=== PATIENT | female | born 1990 | race American Indian/Alaskan Native ===

== ENCOUNTER 2019-04-09 07:55 | Emergency (ER) | payer SELFPAY ==
--- NOTE | 2019-04-09 10:38 | Emergency Department Report ---
ED Female HPI - General Chief complaint: Urogenital-Female Stated complaint: BUMP VAGINAL AREA Time Seen by Provider: 04/09/19 09:30 Source: patient Mode of arrival: Ambulatory Limitations: No Limitations - History of Present Illness Initial comments: This is a 28-year-old -[place] female presents to the emergency room with painful bumps to external labia for 2 days. Patient reports it is increasingly uncomfortable with sitting. She reports prior history once before but it went away. Her last menstrual period was 04/01/2019, . She denies vaginal discharge, pelvic pain, back pain, urinary frequency, urinary urgency, or dysuria. MD Complaint: possible STD Onset/Timin -: days(s) Location: suprapubic Radiation: non-radiating Severity: moderate Severity scale (0 -10): 5 Quality: aching Consistency: intermittent Improves with: none Worsens with: movement, other (sitting) Are you Now?: No Last Menstrual Period: 04/01/19 EDC: 01/06/20 Associated Symptoms: denies other symptoms - Related Data Sexually active: Yes : 3 Para: 2 A: 1 () Previous Rx's Medication Instructions Recorded Last Taken Type Valacyclovir HCl [Valtrex] 1,000 mg PO BID #20 tablet 04/09/19 Unknown Rx Allergies Allergy/AdvReac Type Severity Reaction Status Date / Time No Known Allergies Allergy Unverified 04/09/19 08:09 ED Review of Systems ROS: Stated complaint: BUMP VAGINAL AREA Other details as noted in HPI Constitutional: denies: chills, fever Respiratory: denies: cough, shortness of breath, wheezing Cardiovascular: denies: chest pain, palpitations Gastrointestinal: denies: abdominal pain, nausea, diarrhea Genitourinary: denies: urgency, dysuria, discharge Musculoskeletal: denies: back pain, joint swelling, arthralgia Skin: lesions (painful lesion to labia). denies: rash Neurological: denies: headache, weakness, paresthesias Psychiatric: denies: anxiety, depression ED Past Medical Hx - Past Medical History Previous Medical History?: No - Surgical History Past Surgical History?: No - Social History Smoking Status: Current Every Day Smoker Substance Use Type: Alcohol - Medications Home Medications: Home Medications Medication Instructions Recorded Confirmed Last Taken Type Valacyclovir HCl [Valtrex] 1,000 mg PO BID #20 tablet 04/09/19 Unknown Rx ED Physical Exam - General Limitations: No Limitations General appearance: alert, in no apparent distress - Respiratory Respiratory exam: Present: normal lung sounds bilaterally. Absent: respiratory distress - Cardiovascular Cardiovascular Exam: Present: regular rate, normal rhythm. Absent: systolic murmur, diastolic murmur, rubs, gallop - GI/Abdominal GI/Abdominal exam: Present: soft, normal bowel sounds. Absent: distended, tenderness, guarding, rebound, rigid - External exam: Present: lesions (Multiple vesicular lesions to vaginal opening, TTP). Absent: erythema, swelling, lacerations, ecchymosis, bleeding - Neurological Exam Neurological exam: Present: alert, oriented X3, normal gait - Psychiatric Psychiatric exam: Present: normal affect, normal mood - Skin Skin exam: Present: warm, dry, intact, normal color. Absent: rash ED Course Vital Signs 04/09/19 08:00 Temperature 98.4 F Pulse Rate 74 Respiratory 16 Rate Blood Pressure 113/62 O2 Sat by Pulse 100 Oximetry ED Medical Decision Making - Medical Decision Making This is a 28-year-old -[place] female who presents with painful lesions to genital for 2 days. Patient was examined by me. Vitals are stable and in no acute distress. No labs ordered. Multiple vesicular lesions to vaginal opening, TTP. Lesions appear to be genital herpes. Start famciclovir. Referral to PCP or health Department for full STD screen. Discharged home in stable condition. Discussed prevention options. F/U with PCP or Health Department. - Differential Diagnosis genital ulcer Critical care attestation.: If time is entered above; I have spent that time in minutes in the direct care of this critically ill patient, excluding procedure time. ED Disposition Clinical Impression: Pain of female genitalia Genital herpes Qualifiers: Herpes simplex infection site: perianal skin Qualified Code(s): A60.1 - Herpesviral infection of perianal skin and rectum Disposition: - TO HOME OR SELFCARE Is pt being admited?: No Condition: Stable Instructions: Genital Herpes Simplex (ED) Additional Instructions: Complete antiviral medication as prescribed. Continue safe sexual intercourse. Follow up with Primary Care Provider or health department. Prescriptions: Valacyclovir HCl [Valtrex] 1,000 mg PO BID #20 tablet Referrals: [facility] [Outside] - 3-5 Days [facility] [Outside] - 3-5 Days [facility] [Outside] - 3-5 Days [facility] [Outside] - 3-5 Days Forms: Work/School Release Form(ED) Time of Disposition: 10:42
[2019-04-09 10:57] VITALS: BP 118/70
== END 2019-04-09 10:56 | disposition home or self-care (01) ==
LOC: ED 07:55
DX: A60.00 Herpesviral infection of urogenital system, unspecified (principal); F17.200 Nicotine dependence, unspecified, uncomplicated

== ENCOUNTER 2019-10-10 14:11 | Emergency (ER) | payer SELFPAY ==
[2019-10-10 14:15] VITALS: BP 116/73
--- NOTE | 2019-10-10 14:41 | Emergency Department Report ---
ED Rash HPI - HPI Chief Complaint: Allergic Reaction Stated Complaint: ALLERGIC SKIN REACTION Time Seen by Provider: 10/10/19 14:35 Duration: 4 Days Location: Chest, Back, Abdomen Rash Symptoms: Yes Itching, No Facial Swelling, No Tongue/Oral Swelling, No Breathing Difficulties, No Choking Sensation, No Wheezing/Dyspnea, No Peeling, No Blistering, No Fever, No Lightheaded, No Malaise, No Myalgias Severity: mild Other History: This 29-year-old female with no prior medical history presents to ED complaining of patchy rash on her abdomen chest and back which he noticed about 3 days ago. Patient states that it itches periodically. She denies difficulty breathing, sick contact. ED Review of Systems ROS: Stated complaint: ALLERGIC SKIN REACTION Other details as noted in HPI Comment: All other systems reviewed and negative ED Past Medical Hx - Past Medical History Previous Medical History?: No - Surgical History Past Surgical History?: No - Social History Smoking Status: Current Every Day Smoker Substance Use Type: None - Medications Home Medications: Home Medications Medication Instructions Recorded Confirmed Last Taken Type Valacyclovir HCl [Valtrex] 1,000 mg PO BID #20 tablet 04/09/19 Unknown Rx Prednisone [predniSONE 10 mg 10 mg PO .TAPER #1 tab.ds.pk 10/10/19 Unknown Rx (6-Day Pack, 21 Tabs)] Rash Exam - Exam General: Vital signs noted. No distress. Alert and acting appropriately. HEENT: No Periorbital Edema, No Conjuctival Injection, No Chemosis, No Perioral Edema, No Tongue Edema, No Uvular Edema, No Compromised Airway, No Drooling Lungs: Yes Good Air Exchange (Normal Breath Sounds), No Wheezes, No Ronchi, No Stridor, No Cough, No Labored Respirations, No Retractions, No Use of Accessory Muscles, No Other Abnormal Lung Sounds Heart: Yes Regular, No Murmur Skin: Yes Maculopapular Rash, Yes Erythema, No Urticarial Rash, No Morbilliform rash, No Bulla(e), No Excoriations, No Weeping, No Tenderness, No Edema, No Encrustations, No Other Other: Positive: Abdomen Normal, Neurologic Normal, Musculoskeletal Normal ED Course Vital Signs 10/10/19 14:12 Temperature 98.2 F Pulse Rate 86 Respiratory 20 Rate Blood Pressure 116/73 O2 Sat by Pulse 99 Oximetry ED Medical Decision Making - Medical Decision Making This is a 29-year-old female presents with pityriasis rosea type rash. Explained to patient the rash resolve on its own over time. Discussed short course of steroid. Also discussed with patient she can take Benadryl as needed for itching. At the also discussed topical steroid such as cortisone cream. Vital signs are normal patient is in no acute distress. Critical care attestation.: If time is entered above; I have spent that time in minutes in the direct care of this critically ill patient, excluding procedure time. ED Disposition Clinical Impression: Pityriasis rosea-like skin eruption, Pityriasis rosea Disposition: TO HOME OR SELFCARE Is pt being admited?: No Does the pt Need Aspirin: No Condition: Stable Instructions: Pityriasis rosea (ED) Additional Instructions: Make sure to follow up with the primary care physician as discussed. take medication as prescribed If you have any worsening symptoms or develop new symptoms please return to ED immediately. Prescriptions: Prednisone [predniSONE 10 mg (6-Day Pack, 21 Tabs)] 10 mg PO .TAPER #1 tab.ds.pk Referrals: [facility] [Outside] - 3-[address] [facility] [Outside] - 3-5 Days Forms: Work/School Release Form(ED) Time of Disposition: 14:47
== END 2019-10-10 15:10 | disposition home or self-care (01) ==
LOC: ED 14:11
DX: L42 Pityriasis rosea (principal); R21 Rash and other nonspecific skin eruption; F17.200 Nicotine dependence, unspecified, uncomplicated; Z79.899 Other long term (current) drug therapy
CPT/HCPCS: 99282

== ENCOUNTER 2019-11-13 03:03 | Emergency (ER) | payer SELFPAY ==
[2019-11-13 03:10] VITALS: BP 124/79
[2019-11-13 04:14] LABS: Bacteria,Urine 4+ /HPF (Negative); Bilirubin,Urine NEG (Negative); Blood,Urine NEG (Negative); Color,Urine Yellow (Yellow); Mucus,Urine 3+ /HPF; Protein,Urine <15 mg/dL mg/dL (Negative)
[2019-11-13 04:18] LABS: HCG Qualitative,Urine Negative (Negative)
--- NOTE | 2019-11-13 04:35 | Emergency Department Report ---
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 States that the odor from the vaginal area was weakness prior to visit to the emergency department. States has been having some issues with dysuria and thinks she has a urinary tract infection as well so she would like to get that checked to currently she reports no hemoptysis no hematemesis no hematochezia, no fever, chills, sweats no abdominal pain no flank pain and dyspnea is not suspicious for any MD Complaint: vaginal discharge, dysuria Quality: dull Consistency: constant Improves with: none, menstrual period Are you Now?: No Associated Symptoms: dysuria. denies: vaginal discharge, vaginal bleeding, abdominal pain, shortness of breath, syncope, weakness - Related Data Previous Rx's Medication Instructions Recorded Last Taken Type Valacyclovir HCl [Valtrex] 1,000 mg PO BID #20 tablet 04/09/19 Unknown Rx Prednisone [predniSONE 10 mg 10 mg PO .TAPER #1 tab.ds.pk 10/10/19 Unknown Rx (6-Day Pack, 21 Tabs)] Phenazopyridine [Pyridium] 200 mg PO TID #9 tab 11/13/19 Unknown Rx Sulfamethoxazole/Trimethoprim 1 each PO BID #20 tablet 11/13/19 Unknown Rx [Bactrim DS TAB] Allergies Allergy/AdvReac Type Severity Reaction Status Date / Time No Known Allergies Allergy Verified 11/13/19 03:07 ED Review of Systems ROS: Stated complaint: VAGINAL ODOR, DISCHARGE Other details as noted in HPI Comment: All other systems reviewed and negative ED Past Medical Hx - Past Medical History Previous Medical History?: No - Surgical History Past Surgical History?: No - Social History Smoking Status: Current Every Day Smoker Substance Use Type: Alcohol - Medications Home Medications: Home Medications Medication Instructions Recorded Confirmed Last Taken Type Valacyclovir HCl [Valtrex] 1,000 mg PO BID #20 tablet 04/09/19 Unknown Rx Prednisone [predniSONE 10 mg 10 mg PO .TAPER #1 tab.ds.pk 10/10/19 Unknown Rx (6-Day Pack, 21 Tabs)] Phenazopyridine [Pyridium] 200 mg PO TID #9 tab 11/13/19 Unknown Rx Sulfamethoxazole/Trimethoprim 1 each PO BID #20 tablet 11/13/19 Unknown Rx [Bactrim DS TAB] ED Physical Exam - General Limitations: No Limitations General appearance: alert, in no apparent distress - Head Head exam: Present: atraumatic, normocephalic - Eye Eye exam: Present: normal appearance - ENT ENT exam: Present: mucous membranes moist - Neck Neck exam: Present: normal inspection - Respiratory Respiratory exam: Present: normal lung sounds bilaterally. Absent: respiratory distress - Cardiovascular Cardiovascular Exam: Present: regular rate, normal rhythm. Absent: systolic murmur, diastolic murmur, rubs, gallop - GI/Abdominal GI/Abdominal exam: Present: soft, normal bowel sounds - Extremities Exam Extremities exam: Present: normal inspection - Back Exam Back exam: Present: normal inspection - Neurological Exam Neurological exam: Present: alert, oriented X3 - Psychiatric Psychiatric exam: Present: normal affect, normal mood - Skin Skin exam: Present: warm, dry, intact, normal color. Absent: rash ED Course Vital Signs 11/13/19 11/13/19 03:07 03:08 Temperature 98.4 F Pulse Rate 80 Blood Pressure 124/79 [Right] O2 Sat by Pulse 100 Oximetry ED Medical Decision Making - Lab Data Lab Results 11/13/19 Range/Units 03:44 Urine Color Yellow (Yellow) Urine Turbidity Slightly-cloudy (Clear) Urine pH 6.0 (5.0-7.0) Ur Specific [place] 1.027 (1.003-1.030) Urine Protein <15 mg/dl (Negative) mg/dL Urine Glucose (UA) Neg (Negative) mg/dL Urine Ketones Neg (Negative) mg/dL Urine Blood Neg (Negative) Urine Nitrite Pos (Negative) Ur Reducing Substances Not Reportable Urine Bilirubin Neg (Negative) Urine Ictotest Not Reportable Urine Urobilinogen 2.0 (<2.0) mg/dL Ur Leukocyte Esterase Sm (Negative) Urine WBC (Auto) 12.0 H (0.0-6.0) /HPF Urine RBC (Auto) 2.0 (0.0-6.0) /HPF U Epithel Cells (Auto) 5.0 (0-13.0) /HPF Urine Bacteria (Auto) 4+ (Negative) /HPF Urine Mucus 3+ /HPF Urine HCG, Qual Negative (Negative) Critical care attestation.: If time is entered above; I have spent that time in minutes in the direct care of this critically ill patient, excluding procedure time. ED Disposition Clinical Impression: UTI (urinary tract infection) Disposition: TO HOME OR SELFCARE Is pt being admited?: No Does the pt Need Aspirin: No Condition: Stable Instructions: Phenazopyridine (By mouth), Urinary Tract Infection in Women (ED), Dysuria (ED) Additional Instructions: Please be sure to follow-up with local health department or the listed provider to obtain your STD profile Prescriptions: Sulfamethoxazole/Trimethoprim [Bactrim DS TAB] 1 each PO BID #20 tablet Phenazopyridine [Pyridium] 200 mg PO TID #9 tab Referrals: PRIMARY CARE, [Primary Care Provider] - 3-5 Days [facility] [Outside] - 3-5 Days [facility] [Other] - 3-5 Days (Same day appointments available be sure to take your hospital discharge.)
== END 2019-11-13 04:34 | disposition home or self-care (01) ==
LOC: ED 03:03
DX: N39.0 Urinary tract infection, site not specified (principal); F17.200 Nicotine dependence, unspecified, uncomplicated; Z79.899 Other long term (current) drug therapy
CPT/HCPCS: 81001; 81025; 87076; 87086; 87186; 99283

== ENCOUNTER 2021-03-28 13:16 | Emergency (ER) | payer SELFPAY ==
[2021-03-28] MEDS ORDERED: ACETAMINOPHEN 325 MG TAB PO ONE (14:13)
[2021-03-28 14:26] LABS: Basophils # (Auto) 0.1 K/mm3 (0.0-0.1); Eosinophils # (Auto) 0.4 K/mm3 (0.0-0.4); Eosinophils % (Auto) 5.1 % (0.0-4.3); Hematocrit 41.4 % (30.3-42.9); Hemoglobin 13.7 gm/dl (10.1-14.3); Lymphocytes # (Auto) 2.4 K/mm3 (1.2-5.4); Lymphocytes % (Auto) 29.6 % (13.4-35.0); Mean Corpuscular HGB Conc 33 % (30-34); Mean Corpuscular Volume 97 fl (79-97); Monocytes # (Auto) 0.8 K/mm3 (0.0-0.8); Monocytes % (Auto) 10.5 % (0.0-7.3); Platelet Count 372 K/mm3 (140-440); Red Blood Count 4.26 M/mm3 (3.65-5.03); Red Cell Distribution Width 12.9 % (13.2-15.2)
[2021-03-28 14:55] LABS: Alanine Aminotransferase 6 units/L (7-56); Albumin 4.2 g/dL (3.9-5); Blood Urea Nitrogen 10 mg/dL (7-17); Calcium 9.3 mg/dL (8.4-10.2); Hemolysis Index 3
[2021-03-28 14:58] LABS: BUN/Creatinine Ratio 17
--- NOTE | 2021-03-28 15:33 | Emergency Department Report ---
ED General Adult HPI - General Chief complaint: Abdominal Pain Stated complaint: 7 WEEKS WITH ABD. CRAMPS Time Seen by Provider: 03/28/21 13:55 Source: patient Mode of arrival: Ambulatory Limitations: No Limitations - History of Present Illness Initial comments: Patient is a 30-year-old female presents emergency room complaints of abdominal cramping that began 2 days ago. She states her last menstrual cycle was 01/31/2021. She has not seen anyone or had this confirmed. She states that she took a kdra-vhk-gothdhf urine test on 23 March and reports it was positive. She denies any fever, nausea, vomiting, diarrhea, urinary symptoms, vaginal bleeding, vaginal discharge. Patient denies any past medical history. No allergies to medications. /P: 2/A: 1 Severity scale (0 -10): 6 - Related Data Previous Rx's Medication Instructions Recorded Last Taken Type Valacyclovir HCl [Valtrex] 1,000 mg PO BID #20 tablet 04/09/19 Unknown Rx Prednisone [predniSONE 10 mg 10 mg PO .TAPER #1 tab.ds.pk 10/10/19 Unknown Rx (6-Day Pack, 21 Tabs)] Phenazopyridine [Pyridium] 200 mg PO TID #9 tab 11/13/19 Unknown Rx Sulfamethoxazole/Trimethoprim 1 each PO BID #20 tablet 11/13/19 Unknown Rx [Bactrim DS TAB] Acetaminophen [Tylenol] 650 mg PO Q8HR PRN #20 capsule 03/28/21 Unknown Rx cephALEXin [Keflex] 500 mg PO BID 7 Days #14 cap 03/28/21 Unknown Rx Allergies Allergy/AdvReac Type Severity Reaction Status Date / Time No Known Allergies Allergy Verified 11/13/19 03:07 ED Review of Systems ROS: Stated complaint: 7 WEEKS WITH ABD. CRAMPS Other details as noted in HPI Comment: All other systems reviewed and negative ED Past Medical Hx - Social History Smoking Status: Current Every Day Smoker Substance Use Type: Alcohol - Medications Home Medications: Home Medications Medication Instructions Recorded Confirmed Last Taken Type Valacyclovir HCl [Valtrex] 1,000 mg PO BID #20 tablet 04/09/19 Unknown Rx Prednisone [predniSONE 10 mg 10 mg PO .TAPER #1 tab.ds.pk 10/10/19 Unknown Rx (6-Day Pack, 21 Tabs)] Phenazopyridine [Pyridium] 200 mg PO TID #9 tab 11/13/19 Unknown Rx Sulfamethoxazole/Trimethoprim 1 each PO BID #20 tablet 11/13/19 Unknown Rx [Bactrim DS TAB] Acetaminophen [Tylenol] 650 mg PO Q8HR PRN #20 capsule 03/28/21 Unknown Rx cephALEXin [Keflex] 500 mg PO BID 7 Days #14 cap 03/28/21 Unknown Rx ED Physical Exam - General Limitations: No Limitations General appearance: alert, in no apparent distress - Head Head exam: Present: atraumatic, normocephalic - Eye Eye exam: Present: normal appearance - ENT ENT exam: Present: mucous membranes moist - Respiratory Respiratory exam: Present: normal lung sounds bilaterally. Absent: respiratory distress, wheezes, rales, rhonchi, stridor, chest wall tenderness, accessory muscle use, decreased breath sounds, prolonged expiratory - Cardiovascular Cardiovascular Exam: Present: regular rate, normal rhythm, normal heart sounds. Absent: systolic murmur, diastolic murmur, rubs, gallop - GI/Abdominal GI/Abdominal exam: Present: soft, normal bowel sounds. Absent: distended, tenderness, guarding, rebound, rigid - Neurological Exam Neurological exam: Present: alert, oriented X3 - Psychiatric Psychiatric exam: Present: normal affect, normal mood - Skin Skin exam: Present: warm, dry, intact ED Course Vital Signs 03/28/21 03/28/21 03/28/21 13:19 15:06 18:28 Temperature 98.7 F 98.5 F Pulse Rate 69 78 Respiratory 18 16 16 Rate Blood Pressure 109/73 Blood Pressure 116/72 [Left] O2 Sat by Pulse 100 99 Oximetry ED Medical Decision Making - Lab Data Result diagrams: 03/28/21 13:59 03/28/21 13:59 Lab Results 03/28/21 03/28/21 03/28/21 Range/Units 13:59 13:59 13:59 WBC 7.9 (4.5-11.0) K/mm3 RBC 4.26 (3.65-5.03) M/mm3 Hgb 13.7 (10.1-14.3) gm/dl Hct 41.4 (30.3-42.9) % MCV 97 (79-97) fl MCH 32 (28-32) pg MCHC 33 (30-34) % RDW 12.9 L (13.2-15.2) % Plt Count 372 (140-440) K/mm3 Lymph % (Auto) 29.6 (13.4-35.0) % [place] % (Auto) 10.5 H (0.0-7.3) % Eos % (Auto) 5.1 H (0.0-4.3) % Baso % (Auto) 1.0 (0.0-1.8) % Lymph # (Auto) 2.4 (1.2-5.4) K/mm3 [place] # (Auto) 0.8 (0.0-0.8) K/mm3 Eos # (Auto) 0.4 (0.0-0.4) K/mm3 Baso # (Auto) 0.1 (0.0-0.1) K/mm3 Seg Neutrophils % 53.8 (40.0-70.0) % Seg Neutrophils # 4.3 (1.8-7.7) K/mm3 Sodium 145 (137-145) mmol/L Potassium 4.5 (3.6-5.0) mmol/L Chloride 107.1 H (98-107) mmol/L Carbon Dioxide 24 (22-30) mmol/L Anion Gap 18 mmol/L BUN 10 (7-17) mg/dL Creatinine 0.6 (0.6-1.2) mg/dL Estimated GFR > 60 ml/min BUN/Creatinine Ratio 17 % Glucose 91 (65-100) mg/dL Calcium 9.3 (8.4-10.2) mg/dL Total Bilirubin 0.50 (0.1-1.2) mg/dL AST 12 (5-40) units/L ALT 6 L (7-56) units/L Alkaline Phosphatase 63 (35-129) units/L Total Protein 7.5 (6.3-8.2) g/dL Albumin 4.2 (3.9-5) g/dL Albumin/Globulin Ratio 1.3 % HCG, Quant 574.6 H (0-4) mIU/mL Urine Color (Yellow) Urine Turbidity (Clear) Urine pH (5.0-7.0) Ur Specific [place] (1.003-1.030) Urine Protein (Negative) mg/dL Urine Glucose (UA) (Negative) mg/dL Urine Ketones (Negative) mg/dL Urine Blood (Negative) Urine Nitrite (Negative) Urine Bilirubin (Negative) Urine Urobilinogen (<2.0) mg/dL Ur Leukocyte Esterase (Negative) Urine WBC (Auto) (0.0-6.0) /HPF Urine RBC (Auto) (0.0-6.0) /HPF U Epithel Cells (Auto) (0-13.0) /HPF Urine Bacteria (Auto) (Negative) /HPF Urine Mucus /HPF Urine HCG, Qual (Negative) 03/28/21 Range/Units Unknown WBC (4.5-11.0) K/mm3 RBC (3.65-5.03) M/mm3 Hgb (10.1-14.3) gm/dl Hct (30.3-42.9) % MCV (79-97) fl MCH (28-32) pg MCHC (30-34) % RDW (13.2-15.2) % Plt Count (140-440) K/mm3 Lymph % (Auto) (13.4-35.0) % [place] % (Auto) (0.0-7.3) % Eos % (Auto) (0.0-4.3) % Baso % (Auto) (0.0-1.8) % Lymph # (Auto) (1.2-5.4) K/mm3 [place] # (Auto) (0.0-0.8) K/mm3 Eos # (Auto) (0.0-0.4) K/mm3 Baso # (Auto) (0.0-0.1) K/mm3 Seg Neutrophils % (40.0-70.0) % Seg Neutrophils # (1.8-7.7) K/mm3 Sodium (137-145) mmol/L Potassium (3.6-5.0) mmol/L Chloride (98-107) mmol/L Carbon Dioxide (22-30) mmol/L Anion Gap mmol/L BUN (7-17) mg/dL Creatinine (0.6-1.2) mg/dL Estimated GFR ml/min BUN/Creatinine Ratio % Glucose (65-100) mg/dL Calcium (8.4-10.2) mg/dL Total Bilirubin (0.1-1.2) mg/dL AST (5-40) units/L ALT (7-56) units/L Alkaline Phosphatase (35-129) units/L Total Protein (6.3-8.2) g/dL Albumin (3.9-5) g/dL Albumin/Globulin Ratio % HCG, Quant (0-4) mIU/mL Urine Color Yellow (Yellow) Urine Turbidity Slightly-cloudy (Clear) Urine pH 6.0 (5.0-7.0) Ur Specific [place] 1.021 (1.003-1.030) Urine Protein <15 mg/dl (Negative) mg/dL Urine Glucose (UA) Neg (Negative) mg/dL Urine Ketones Neg (Negative) mg/dL Urine Blood Neg (Negative) Urine Nitrite Neg (Negative) Urine Bilirubin Neg (Negative) Urine Urobilinogen < 2.0 (<2.0) mg/dL Ur Leukocyte Esterase Tr (Negative) Urine WBC (Auto) 10.0 H (0.0-6.0) /HPF Urine RBC (Auto) 3.0 (0.0-6.0) /HPF U Epithel Cells (Auto) 4.0 (0-13.0) /HPF Urine Bacteria (Auto) 1+ (Negative) /HPF Urine Mucus 3+ /HPF Urine HCG, Qual Positive A (Negative) - Radiology Data Radiology results: report reviewed Ordering Physician: CHESTER RIBEIRO Date of Service: 03/28/21 Procedure(s): US OB <= 14 weeks fetus Accession Number(s): [id number] cc: CHESTER RIBEIRO ULTRASOUND PELVIS INDICATION: , abd pain. TECHNIQUE: Transabdominal. Transvaginal Duplex Color Doppler used: Yes. COMPARISON: None available FINDINGS: Uterus: Present. Size: 8.8 x 4.7 x 4.7 cm. Endometrial complex: 8 mm in size. Early gestational sac dated 5 weeks 0 days. Mass lesions: None. Additional findings: None. Right Ovary -- Normal. Blood flow: Normal. Cyst or mass: None. Left Ovary-- Normal. Blood flow: Normal. Cyst or mass: None. Urinary Bladder: Normal. Free Fluid: None. Additional Findings: None. IMPRESSION: Mildly thickened endometrial stripe with early gestational sac. No pole or yolk sac seen at this time. Signer Name: Dimas Lane MD Signed: 03/28/2021 6:14 PM Workstation Name: [id number] Transcribed By: ES Dictated By: Dimas Lane MD Electronically Authenticated By: Dimas Lane MD Signed Date/Time: 03/28/211813 DD/ 11 TD/TT: - Medical Decision Making Patient is a 30-year-old female presents emergency room complaints of abdominal cramping that began 2 days ago. She states her last menstrual cycle was 01/31/2021. She has not seen anyone or had this confirmed. She states that she took a bezo-cul-xovmhuu urine test on 23 March and reports it was positive. She denies any fever, nausea, vomiting, diarrhea, urinary symptoms, vaginal bleeding, vaginal discharge. Patient denies any past medical history. No allergies to medications. /P: 2/A: 1. Vitals are normal. No abdominal tenderness on exam. hCG quant is 574. UA shows evidence of mild UTI. OB ultrasound: IMPRESSION: Mildly thickened endometrial stripe with early gestational sac. No pole or yolk sac seen at this time. discussed all findings with pt. discussed close rail setter follow up. advised pt Please take medication as prescribed. Increase your water intake. Please make sure to take a vitamin [id number]. Follow-up with [facility]. 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 Return to emergency room for any new or worsening symptoms. Critical care attestation.: If time is entered above; I have spent that time in minutes in the direct care of this critically ill patient, excluding procedure time. ED Disposition Clinical Impression: Early stage of UTI (urinary tract infection) Qualifiers: Urinary tract infection type: acute cystitis Hematuria presence: without hematuria Qualified Code(s): N30.00 - Acute cystitis without hematuria Disposition: HOME / SELF CARE / HOMELESS Is pt being admited?: No Does the pt Need Aspirin: No Condition: Stable Instructions: First Trimester of , [id number]-Wejq, Urinary Tract Infection, Adult, Abdominal Pain (ED) Additional Instructions: Please take medication as prescribed. Increase your water intake. Please make sure to take a vitamin [id number]. Follow-up with VE[facility] MECH[facility]. 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 Return to emergency room for any new or worsening symptoms. Prescriptions: cephALEXin [Keflex] 500 mg PO BID 7 Days #14 cap Acetaminophen [Tylenol] 650 mg PO Q8HR PRN #20 capsule PRN Reason: pain Referrals: PRIMARY CARE, [Primary Care Provider] - 3-5 Days [facility] [Provider Group] - 3-5 Days Time of Disposition: 18:20 Print Language: GAMBIAN
[2021-03-28 16:01] LABS: Bacteria,Urine 1+ /HPF (Negative); Bilirubin,Urine NEG (Negative); Blood,Urine NEG (Negative); Color,Urine Yellow (Yellow); Mucus,Urine 3+ /HPF; Protein,Urine <15 mg/dL mg/dL (Negative); Urobilinogen,Urine < 2.0 mg/dL (<2.0)
[2021-03-28 16:05] LABS: HCG Qualitative,Urine Positive (Negative)
--- NOTE | 2021-03-28 18:18 | Ultrasound Report ---
ULTRASOUND PELVIS INDICATION: , abd pain. TECHNIQUE: Transabdominal. Transvaginal Duplex Color Doppler used: Yes. COMPARISON: None available FINDINGS: Uterus: Present. Size: 8.8 x 4.7 x 4.7 cm. Endometrial complex: 8 mm in size. Early gestational sac dated 5 weeks 0 days. Mass lesions: None. Additional findings: None. Right Ovary -- Normal. Blood flow: Normal. Cyst or mass: None. Left Ovary-- Normal. Blood flow: Normal. Cyst or mass: None. Urinary Bladder: Normal. Free Fluid: None. Additional Findings: None. IMPRESSION: Mildly thickened endometrial stripe with early gestational sac. No pole or yolk sac seen at this time. Signer Name: Dimas Lane MD Signed: 03/28/2021 6:14 PM Workstation Name: [id number]
[2021-03-28 18:29] VITALS: BP 116/72
== END 2021-03-28 18:28 | disposition home or self-care (01) ==
LOC: ED 13:16
DX: O23.41 Unspecified infection of urinary tract in pregnancy, first trimester (principal); N30.00 Acute cystitis without hematuria; O99.331 Smoking (tobacco) complicating pregnancy, first trimester; F17.200 Nicotine dependence, unspecified, uncomplicated; Z3A.01 Less than 8 weeks gestation of pregnancy; Z79.899 Other long term (current) drug therapy
CPT/HCPCS: 36415; 76801; 76817; 80053; 81001; 81025; 84702; 85025; 87076; 87086; 87186; 99284

== ENCOUNTER 2021-04-15 10:07 | Emergency (ER) | payer SELFPAY ==
--- NOTE | 2021-04-15 12:31 | Emergency Department Report ---
ED HPI - General Chief complaint: Vaginal Bleeding Stated complaint: vaginal bleeding Time Seen by Provider: 04/15/21 11:42 Source: patient Mode of arrival: Ambulatory Limitations: No Limitations - History of Present Illness Initial comments: 30-year-old female presents to the ER today with complaints of abnormal vaginal bleeding and being . Patient states that her last menstrual cycle was sometime in the beginning of January. She thinks she is about 9 to 10 weeks . Patient states that she took a home test February, and then she followed up at an [facility] office and confirmed the . She states that she was not sure she was going to keep the baby and so she has not followed up since. She was seen here on March 28, at the time she was having lower abdominal pain and she did have labs as well as a OB ultrasound. Her quant at that time measured at 574.6 and ultrasound showed mildly thickened endometrial stripe with an early gestational sac and she did have a UTI. Urine culture was positive for E. coli. Patient states that she started having abnormal vaginal bleeding 2 days ago. She states that the pain was similar to that of her menstrual cycle, but it has been intermittent and she notices it mainly when she wipes after urinating. She has had to use 1 panty liner and that was a couple days ago. She reports intermittent cramping and lower back pain. She states that she has urinary odor but no other UTI symptoms. She states that she has not picked up the Keflex that she was prescribed on March 28, 2021. She is G4, P2 Ab1. she reports no additional symptoms at this time. Complaint: vaginal bleeding -: days(s) - Related Data Previous Rx's Medication Instructions Recorded Last Taken Type Valacyclovir HCl [Valtrex] 1,000 mg PO BID #20 tablet 04/09/19 Unknown Rx Prednisone [predniSONE 10 mg 10 mg PO .TAPER #1 tab.ds.pk 10/10/19 Unknown Rx (6-Day Pack, 21 Tabs)] Phenazopyridine [Pyridium] 200 mg PO TID #9 tab 11/13/19 Unknown Rx Sulfamethoxazole/Trimethoprim 1 each PO BID #20 tablet 11/13/19 Unknown Rx [Bactrim DS TAB] Acetaminophen [Tylenol] 650 mg PO Q8HR PRN #20 capsule 03/28/21 Unknown Rx cephALEXin [Keflex] 500 mg PO BID 7 Days #14 cap 03/28/21 Unknown Rx Allergies Allergy/AdvReac Type Severity Reaction Status Date / Time No Known Allergies Allergy Verified 04/15/21 10:19 ED Review of Systems ROS: Stated complaint: vaginal bleeding Other details as noted in HPI Comment: All other systems reviewed and negative Constitutional: denies: chills, fever Eyes: denies: eye pain, eye discharge, vision change ENT: denies: ear pain, throat pain Respiratory: denies: cough, shortness of breath, SOB with exertion, SOB at rest, wheezing Gastrointestinal: abdominal pain. denies: nausea, diarrhea, constipation, hemat emesis, hematochezia Genitourinary: other (vaginal bleeding). denies: urgency, dysuria, frequency, hematuria, discharge, abnormal menses, dyspareunia Musculoskeletal: denies: back pain, joint swelling, arthralgia Skin: denies: rash, lesions, change in color, change in hair/nails, pruritus Neurological: denies: headache, weakness, numbness, paresthesias, confusion, abnormal gait, vertigo Psychiatric: denies: anxiety, depression, auditory hallucinations, visual hallucinations, homicidal thoughts, suicidal thoughts Hematological/Lymphatic: denies: easy bleeding, easy bruising ED Past Medical Hx - Social History Smoking Status: Current Every Day Smoker Substance Use Type: Alcohol - Medications Home Medications: Home Medications Medication Instructions Recorded Confirmed Last Taken Type Valacyclovir HCl [Valtrex] 1,000 mg PO BID #20 tablet 04/09/19 Unknown Rx Prednisone [predniSONE 10 mg 10 mg PO .TAPER #1 tab.ds.pk 10/10/19 Unknown Rx (6-Day Pack, 21 Tabs)] Phenazopyridine [Pyridium] 200 mg PO TID #9 tab 11/13/19 Unknown Rx Sulfamethoxazole/Trimethoprim 1 each PO BID #20 tablet 11/13/19 Unknown Rx [Bactrim DS TAB] Acetaminophen [Tylenol] 650 mg PO Q8HR PRN #20 capsule 03/28/21 Unknown Rx cephALEXin [Keflex] 500 mg PO BID 7 Days #14 cap 03/28/21 Unknown Rx ED Physical Exam - General Limitations: No Limitations General appearance: alert, in no apparent distress - Head Head exam: Present: atraumatic, normocephalic, normal inspection - Eye Eye exam: Present: normal appearance, PERRL, EOMI Pupils: Present: normal accommodation - ENT ENT exam: Present: normal exam, mucous membranes moist, TM's normal bilaterally - Neck Neck exam: Present: normal inspection, full ROM - Respiratory Respiratory exam: Present: normal lung sounds bilaterally. Absent: respiratory distress, wheezes, rales, rhonchi - Cardiovascular Cardiovascular Exam: Present: regular rate, normal rhythm, normal heart sounds - GI/Abdominal GI/Abdominal exam: Present: soft. Absent: distended, tenderness, guarding, rebound - Neurological Exam Neurological exam: Present: alert, oriented X3, CN II-XII intact, normal gait - Psychiatric Psychiatric exam: Present: normal affect, normal mood - Skin Skin exam: Present: intact ED Course Vital Signs 04/15/21 10:18 Temperature 98.4 F Pulse Rate 72 Respiratory 16 Rate Blood Pressure 116/65 [Left] O2 Sat by Pulse 100 Oximetry ED Medical Decision Making - Lab Data Result diagrams: 04/15/21 12:46 04/15/21 12:46 - Medical Decision Making 1633: CBC and BMP unremarkable. Quant hCG still pending and ED Rh are still pending. These were ordered at 1246. Lab was called at least 3 times in regard to these pending orders. As far as the quantitative hCG, I was told that they were having instrument issues. As far as ED Rh, I was told by the tech that patient is Rh- but it was not reported because she was waiting for some other test to get done before she could reported. Patient is becoming impatient and is ready to leave. Critical care attestation.: If time is entered above; I have spent that time in minutes in the direct care of this critically ill patient, excluding procedure time. ED Disposition Clinical Impression: Threatened miscarriage Disposition: HOME / SELF CARE / HOMELESS Is pt being admited?: No Does the pt Need Aspirin: No Condition: Stable Instructions: Threatened Miscarriage, Qchd-[id number]-Peem Additional Instructions: If you do decide to keep the to , it is important that you follow-up with [facility] listed on your discharge instruction for further care. Your urine culture was positive for E. coli and so it is very important that you get the Keflex from the pharmacy and start taking it today. Lots of water. Take Tylenol for any pain. Return to the ER if anything changes or worsens in any way. Referrals: [facility] [Provider Group] - 3-5 Days [facility] [Provider Group] - 3-5 Days Forms: Work/School Release Form(ED) Time of Disposition: 17:56
[2021-04-15 13:23] LABS: Hematocrit 41.8 % (30.3-42.9); Hemoglobin 14.3 gm/dl (10.1-14.3); Mean Corpuscular HGB Conc 34 % (30-34); Mean Corpuscular Volume 94 fl (79-97); Red Blood Count 4.46 M/mm3 (3.65-5.03); Red Cell Distribution Width 12.5 % (13.2-15.2)
[2021-04-15 13:24] LABS: Platelet Count 223 K/mm3 (140-440)
[2021-04-15 13:27] LABS: Blood Urea Nitrogen 7 mg/dL (7-17); Calcium 9.3 mg/dL (8.4-10.2); Hemolysis Index 83
[2021-04-15 13:47] LABS: BUN/Creatinine Ratio 14
[2021-04-15 13:59] LABS: Large Platelets Few; Total Cells Counted 100
[2021-04-15 14:00] LABS: Platelet Estimate Consistent w Auto
[2021-04-15] MEDS ORDERED: cephALEXin 500 MG CAP PO ONE (17:57)
--- NOTE | 2021-04-15 18:52 | Ultrasound Report ---
ULTRASOUND OBSTETRIC INDICATION / CLINICAL INFORMATION: vag bleeding/Quant [id number]. TECHNIQUE: Transvaginal. COMPARISON: None available. FINDINGS: GESTATIONAL SAC: Well-defined oval shape and intrauterine in location. YOLK SAC: No significant abnormality. EMBRYO/FETUS: No significant abnormality. - Sumpter-Rump Length = 0.94 cm = 7 weeks, 0 day(s). - Heart Rate, beats per minute (if present) = 130 ADNEXA: No significant abnormality. FREE FLUID: None. ADDITIONAL FINDINGS: None. IMPRESSION: 1. Single, living intrauterine with estimated sonographic age of 7 weeks, 0 day(s). Signer Name: Griffin Demarco MD Signed: 04/15/2021 6:47 PM Workstation Name: [id number]
[2021-04-15 19:24] VITALS: BP 99/50
== END 2021-04-15 19:25 | disposition home or self-care (01) ==
LOC: ED 10:07
DX: O20.0 Threatened abortion (principal); O99.331 Smoking (tobacco) complicating pregnancy, first trimester; Z3A.10 10 weeks gestation of pregnancy
CPT/HCPCS: 36415; 76817; 80048; 84702; 85007; 85025; 86850; 86900; 86901; 96372; 99284; J2790

== ENCOUNTER 2021-05-06 18:58 | Emergency (ER) | payer MEDICAID ==
[2021-05-06 20:30] LABS: Basophils # (Auto) 0.1 K/mm3 (0.0-0.1); Basophils % (Auto) 0.7 % (0.0-1.8); Eosinophils # (Auto) 0.2 K/mm3 (0.0-0.4); Eosinophils % (Auto) 2.9 % (0.0-4.3); Hematocrit 35.4 % (30.3-42.9); Hemoglobin 11.8 gm/dl (10.1-14.3); Lymphocytes # (Auto) 2.2 K/mm3 (1.2-5.4); Lymphocytes % (Auto) 25.7 % (13.4-35.0); Mean Corpuscular HGB Conc 33 % (30-34); Mean Corpuscular Volume 95 fl (79-97); Monocytes # (Auto) 1.3 K/mm3 (0.0-0.8); Monocytes % (Auto) 15.8 % (0.0-7.3); Platelet Count 367 K/mm3 (140-440); Red Blood Count 3.74 M/mm3 (3.65-5.03); Red Cell Distribution Width 12.2 % (13.2-15.2)
--- NOTE | 2021-05-06 20:43 | Emergency Department Report ---
ED Abdominal Pain HPI - General Chief Complaint: Abdominal Pain Stated Complaint: back pain Time Seen by Provider: 05/06/21 20:33 Source: patient Mode of arrival: Ambulatory Limitations: No Limitations - History of Present Illness Initial Comments: Patient 30-year-old female who presents for bilateral flank pain radiating to suprapubic x3 days. Patient is G4, special cycle 2 months ago. Patient has had positive home test. Patient denies vaginal bleeding however. Symptoms are exacerbated by movement. Symptoms are relieved by nothing tried. Patient denies nausea or vomiting. Patient does have [facility] follow-up. MD Complaint: abdominal pain - Related Data Previous Rx's Medication Instructions Recorded Last Taken Type Valacyclovir HCl [Valtrex] 1,000 mg PO BID #20 tablet 04/09/19 Unknown Rx Prednisone [predniSONE 10 mg 10 mg PO .TAPER #1 tab.ds.pk 10/10/19 Unknown Rx (6-Day Pack, 21 Tabs)] Phenazopyridine [Pyridium] 200 mg PO TID #9 tab 11/13/19 Unknown Rx Sulfamethoxazole/Trimethoprim 1 each PO BID #20 tablet 11/13/19 Unknown Rx [Bactrim DS TAB] Acetaminophen [Tylenol] 650 mg PO Q8HR PRN #20 capsule 03/28/21 Unknown Rx cephALEXin [Keflex] 500 mg PO BID 7 Days #14 cap 03/28/21 Unknown Rx cephALEXin [Keflex] 500 mg PO BID 7 Days #14 cap 05/06/21 Unknown Rx Allergies Allergy/AdvReac Type Severity Reaction Status Date / Time No Known Allergies Allergy Verified 04/15/21 10:19 ED Review of Systems ROS: Stated complaint: back pain Other details as noted in HPI Constitutional: denies: chills, fever Eyes: denies: eye pain, eye discharge, vision change ENT: denies: ear pain, throat pain Respiratory: denies: cough, shortness of breath, wheezing Cardiovascular: denies: chest pain, palpitations Endocrine: no symptoms reported Gastrointestinal: abdominal pain. denies: nausea, vomiting, diarrhea, constipation, melena Genitourinary: denies: urgency, dysuria, frequency, hematuria, discharge Musculoskeletal: back pain (bilat flank) Skin: denies: rash, lesions Neurological: denies: headache, weakness, paresthesias Psychiatric: as per HPI Hematological/Lymphatic: as per HPI ED Past Medical Hx - Past Medical History Previous Medical History?: Yes - Social History Smoking Status: Current Every Day Smoker Substance Use Type: Alcohol - Medications Home Medications: Home Medications Medication Instructions Recorded Confirmed Last Taken Type Valacyclovir HCl [Valtrex] 1,000 mg PO BID #20 tablet 04/09/19 Unknown Rx Prednisone [predniSONE 10 mg 10 mg PO .TAPER #1 tab.ds.pk 10/10/19 Unknown Rx (6-Day Pack, 21 Tabs)] Phenazopyridine [Pyridium] 200 mg PO TID #9 tab 11/13/19 Unknown Rx Sulfamethoxazole/Trimethoprim 1 each PO BID #20 tablet 11/13/19 Unknown Rx [Bactrim DS TAB] Acetaminophen [Tylenol] 650 mg PO Q8HR PRN #20 capsule 03/28/21 Unknown Rx cephALEXin [Keflex] 500 mg PO BID 7 Days #14 cap 03/28/21 Unknown Rx cephALEXin [Keflex] 500 mg PO BID 7 Days #14 cap 05/06/21 Unknown Rx ED Physical Exam - General Limitations: No Limitations General appearance: alert, in no apparent distress - Head Head exam: Present: atraumatic, normocephalic - Eye Eye exam: Present: normal appearance, EOMI Pupils: Present: normal accommodation - ENT ENT exam: Present: mucous membranes moist - Neck Neck exam: Present: normal inspection, full ROM. Absent: tenderness - Respiratory Respiratory exam: Present: normal lung sounds bilaterally. Absent: respiratory distress, wheezes, stridor, chest wall tenderness - Cardiovascular Cardiovascular Exam: Present: regular rate, normal rhythm, normal heart sounds - GI/Abdominal GI/Abdominal exam: Present: soft, normal bowel sounds. Absent: distended, tenderness, guarding, rebound, rigid, bruit, hernia - Rectal Rectal exam: Present: deferred - Extremities Exam Extremities exam: Present: normal inspection, full ROM. Absent: tenderness - Back Exam Back exam: Present: normal inspection, full ROM, CVA tenderness (R), CVA tenderness (L) - Neurological Exam Neurological exam: Present: alert, oriented X3, CN II-XII intact - Psychiatric Psychiatric exam: Present: normal affect, normal mood - Skin Skin exam: Present: warm, dry, intact, normal color. Absent: rash ED Course Vital Signs 05/06/21 19:00 Temperature 98.7 F Pulse Rate 80 Respiratory 16 Rate Blood Pressure 108/65 O2 Sat by Pulse 100 Oximetry ED Medical Decision Making - Lab Data Result diagrams: 05/06/21 20:13 05/06/21 20:13 Labs 05/06/21 05/06/21 05/06/21 20:13 20:13 20:13 WBC 8.5 RBC 3.74 Hgb 11.8 Hct 35.4 MCV 95 MCH 32 MCHC 33 RDW 12.2 L Plt Count 367 Lymph % (Auto) 25.7 [place] % (Auto) 15.8 H Eos % (Auto) 2.9 Baso % (Auto) 0.7 Lymph # (Auto) 2.2 [place] # (Auto) 1.3 H Eos # (Auto) 0.2 Baso # (Auto) 0.1 Seg Neutrophils % 54.9 Seg Neutrophils # 4.7 Sodium 134 L Potassium 4.2 Chloride 99.8 Carbon Dioxide 22 Anion Gap 16 BUN 6 L Creatinine 0.5 L Estimated GFR > 60 BUN/Creatinine Ratio 12 Glucose 83 Calcium 8.9 Total Bilirubin 0.30 AST 10 ALT 6 L Alkaline Phosphatase 55 Total Protein 6.9 Albumin 3.8 L Albumin/Globulin Ratio 1.2 HCG, Quant 250952 H Urine Color Urine Turbidity Urine pH Ur Specific [place] Urine Protein Urine Glucose (UA) Urine Ketones Urine Blood Urine Nitrite Urine Bilirubin Urine Urobilinogen Ur Leukocyte Esterase Urine WBC (Auto) Urine RBC (Auto) U Epithel Cells (Auto) Urine Mucus 05/06/21 Unknown WBC RBC Hgb Hct MCV MCH MCHC RDW Plt Count Lymph % (Auto) [place] % (Auto) Eos % (Auto) Baso % (Auto) Lymph # (Auto) [place] # (Auto) Eos # (Auto) Baso # (Auto) Seg Neutrophils % Seg Neutrophils # Sodium Potassium Chloride Carbon Dioxide Anion Gap BUN Creatinine Estimated GFR BUN/Creatinine Ratio Glucose Calcium Total Bilirubin AST ALT Alkaline Phosphatase Total Protein Albumin Albumin/Globulin Ratio HCG, Quant Urine Color Yellow Urine Turbidity Cloudy Urine pH 5.0 Ur Specific [place] 1.012 Urine Protein 30 mg/dl Urine Glucose (UA) Neg Urine Ketones Tr Urine Blood Neg Urine Nitrite Neg Urine Bilirubin Neg Urine Urobilinogen < 2.0 Ur Leukocyte Esterase Lg Urine WBC (Auto) > 182.0 H Urine RBC (Auto) 16.0 U Epithel Cells (Auto) 15.0 H Urine Mucus 3+ - Radiology Data Radiology results: report reviewed, image reviewed Ultrasound single IUP, 10 weeks , 0 days, heart rate 168 bpm, no other finding , Ovaries wnl, no free fluid , - Medical Decision Making Ultrasound single IUP, heart rate 168 bpm, UA noted for leukocytes and bacteria, patient treated for UTI during . Plan to DC to home with prescriptions, follow-up with [facility] in 1 to 2 days. Return to the emergency department should symptoms worsen. Patient is currently tolerating p.o. to intake without nausea or vomiting. There is no fever. There is no vaginal bleeding or discharge. Patient has not been advises no possibility of STI she is not sexually active at this time. Patient does have OBGYN follow-up. Critical care attestation.: If time is entered above; I have spent that time in minutes in the direct care of this critically ill patient, excluding procedure time. ED Disposition Clinical Impression: UTI (urinary tract infection) during Qualifiers: Trimester: first trimester Qualified Code(s): O23.41 - Unspecified infection of urinary tract in , first trimester Disposition: 01 HOME / SELF CARE / HOMELESS Is pt being admited?: No Does the pt Need Aspirin: No Condition: Stable Instructions: Abdominal Pain (ED), and Urinary Tract Infection Additional Instructions: Take medications as prescribed, follow-up with your doctor in 2 to 3 days. Return to emergency department should symptoms worsen. Prescriptions: cephALEXin [Keflex] 500 mg PO BID 7 Days #14 cap Referrals: JAKE MINOR MD [Staff Physician] - 2-3 Days Forms: Work/School Release Form(ED) Time of Disposition: 23:23
[2021-05-06 20:47] LABS: Alanine Aminotransferase 6 units/L (7-56); Albumin 3.8 g/dL (3.9-5); BUN/Creatinine Ratio 12; Blood Urea Nitrogen 6 mg/dL (7-17); Calcium 8.9 mg/dL (8.4-10.2); Hemolysis Index 2
[2021-05-06 21:40] LABS: Bilirubin,Urine NEG (Negative); Blood,Urine NEG (Negative); Color,Urine Yellow (Yellow); Mucus,Urine 3+ /HPF; Urobilinogen,Urine < 2.0 mg/dL (<2.0)
[2021-05-06 21:41] LABS: WBC,Urine > 182.0 /HPF (0.0-6.0)
[2021-05-06] MEDS ORDERED: cefTRIAXone/NS 1 GM/50 ML 1 GM/50 ML BAG IV ONE (21:51)
[2021-05-06] MEDS ORDERED: SODIUM CHLORIDE 0.9% 1000 ML 1,000 ML IV ONE (21:51)
--- NOTE | 2021-05-06 23:22 | Ultrasound Report ---
OB Ultrasound HISTORY: pain in . TECHNIQUE: Grayscale and color imaging performed. COMPARISON: OB ultrasound from 04/15/2021 FINDINGS: Uterus measures 10.3 x 7.1 x 8.6 cm. There is an intrauterine gestation with crown-rump janice gth of 3.1 cm which corresponds with an EGA of 10 weeks and 0 days. The clinical gestational age is 1 3 weeks and 4 days. Mean diameter is 4.4 cm which corresponds with an EGA of 10 weeks and 1 day. [place] mated delivery date is 12/02/2021. heart rate is 168 bpm. Both ovaries appear unremarkable. No significant pelvic free fluid. IMPRESSION: Single viable intrauterine gestation as above. Signer Name: Marco Webb MD Signed: 05/06/2021 11:17 PM Workstation Name: [id number]
[2021-05-07 01:11] VITALS: BP 102/53
== END 2021-05-07 01:11 | disposition home or self-care (01) ==
LOC: ED 18:58
DX: O23.41 Unspecified infection of urinary tract in pregnancy, first trimester (principal); Z3A.10 10 weeks gestation of pregnancy
CPT/HCPCS: 36415; 76801; 76817; 80053; 81001; 84702; 85025; 96365; 99284; J0696; J7030; Q0162

== ENCOUNTER 2021-06-26 12:08 | Emergency (ER) | payer SELFPAY ==
--- NOTE | 2021-06-26 13:48 | Event Note ---
ED Screening Note Date of service: 06/26/21 Time: 13:45 ED Screening Note: 30-year-old female presents to the emergency department for possible . She states that on May 14, 2021 she had an elective at 11 weeks gestation. She states that she had heavy bleeding for few days after that but 2 days ago she had a positive test. She is concerned about whether this is elevated hCG from old or new . She states that she has not had a regular period since her . She denies abdominal pain, dysuria, and fever. This initial assessment/diagnostic orders/clinical plan/treatment(s) is/are subject to change based on patients health status, clinical progression and re- assessment by fellow clinical providers in the ED. Further treatment and workup at subsequent clinical providers discretion. Patient/guardian urged not to elope from the ED as their condition may be serious if not clinically assessed and managed. Initial orders include:
--- NOTE | 2021-06-26 14:46 | Emergency Department Report ---
ED General Adult HPI - General Chief complaint: Recheck/Abnormal Lab/Rx Stated complaint: POST ISSUES Time Seen by Provider: 06/26/21 14:12 Source: patient, RN notes reviewed Mode of arrival: Ambulatory Limitations: No Limitations - History of Present Illness Initial comments: This patient is a pleasant 30-year-old female. She reports that she is 2, para 2, with 2 elective terminations of . She reports that she had an elective termination on May 17, and has subsequently been sexually active. She reports taking multiple tests at home which indicated that she is . She is not having physical pain at this time, but she presents to the ER today with a complaint of not having had her menstruation or., And she does not know if she is , experiencing retained products of conception, or if the home tests are falsely positive. She also presents to the emergency room. -: Gradual Improves with: none Worsens with: none Associated Symptoms: denies other symptoms - Related Data Previous Rx's Medication Instructions Recorded Last Taken Type Valacyclovir HCl [Valtrex] 1,000 mg PO BID #20 tablet 04/09/19 Unknown Rx Prednisone [predniSONE 10 mg 10 mg PO .TAPER #1 tab.ds.pk 10/10/19 Unknown Rx (6-Day Pack, 21 Tabs)] Phenazopyridine [Pyridium] 200 mg PO TID #9 tab 11/13/19 Unknown Rx Sulfamethoxazole/Trimethoprim 1 each PO BID #20 tablet 11/13/19 Unknown Rx [Bactrim DS TAB] Acetaminophen [Tylenol] 650 mg PO Q8HR PRN #20 capsule 03/28/21 Unknown Rx cephALEXin [Keflex] 500 mg PO BID 7 Days #14 cap 03/28/21 Unknown Rx cephALEXin [Keflex] 500 mg PO BID 7 Days #14 cap 05/06/21 Unknown Rx Allergies Allergy/AdvReac Type Severity Reaction Status Date / Time No Known Allergies Allergy Verified 04/15/21 10:19 ED Review of Systems ROS: Stated complaint: POST ISSUES Other details as noted in HPI Comment: All other systems reviewed and negative ED Past Medical Hx - Social History Smoking Status: Current Every Day Smoker Substance Use Type: Alcohol - Medications Home Medications: Home Medications Medication Instructions Recorded Confirmed Last Taken Type Valacyclovir HCl [Valtrex] 1,000 mg PO BID #20 tablet 04/09/19 Unknown Rx Prednisone [predniSONE 10 mg 10 mg PO .TAPER #1 tab.ds.pk 10/10/19 Unknown Rx (6-Day Pack, 21 Tabs)] Phenazopyridine [Pyridium] 200 mg PO TID #9 tab 11/13/19 Unknown Rx Sulfamethoxazole/Trimethoprim 1 each PO BID #20 tablet 11/13/19 Unknown Rx [Bactrim DS TAB] Acetaminophen [Tylenol] 650 mg PO Q8HR PRN #20 capsule 03/28/21 Unknown Rx cephALEXin [Keflex] 500 mg PO BID 7 Days #14 cap 03/28/21 Unknown Rx cephALEXin [Keflex] 500 mg PO BID 7 Days #14 cap 05/06/21 Unknown Rx ED Physical Exam - General Limitations: No Limitations General appearance: alert, in no apparent distress - Head Head exam: Present: atraumatic, normocephalic - Eye Eye exam: Present: normal appearance, EOMI. Absent: nystagmus - ENT ENT exam: Present: normal exam, normal orophraynx, mucous membranes moist, normal external ear exam - Neck Neck exam: Present: normal inspection, full ROM. Absent: tenderness, meningismus - Respiratory Respiratory exam: Present: normal lung sounds bilaterally. Absent: respiratory distress, wheezes, rales, rhonchi, stridor, decreased breath sounds - Cardiovascular Cardiovascular Exam: Present: regular rate, normal rhythm, normal heart sounds. Absent: bradycardia, tachycardia, irregular rhythm, systolic murmur, diastolic murmur, rubs, gallop - GI/Abdominal GI/Abdominal exam: Present: soft. Absent: distended, tenderness, guarding, rebound, rigid, pulsatile mass - Extremities Exam Extremities exam: Present: normal inspection, full ROM, other (2+ pulses noted in the bilateral upper and lower extremities. There is no palpable cord. negative Homans sign. Muscular compartments are soft. The pelvis is stable.). Absent: pedal edema, calf tenderness - Back Exam Back exam: Present: normal inspection, full ROM. Absent: tenderness, CVA ten derness (R), CVA tenderness (L), paraspinal tenderness, vertebral tenderness - Neurological Exam Neurological exam: Present: alert, oriented X3, normal gait, other (No facial droop. Tongue midline. Extraocular movements intact bilaterally. Facial sensation intact to light touch in V1, V2, V3 distribution bilaterally. 5 and a 5 strength in 4 extremities. Sensation intact to light touch in 4 extremities.). Absent: motor sensory deficit - Psychiatric Psychiatric exam: Present: normal affect, normal mood - Skin Skin exam: Present: warm, dry, intact, normal color. Absent: rash ED Course Vital Signs 06/26/21 13:36 Temperature 98.6 F Pulse Rate 83 Respiratory 16 Rate Blood Pressure 124/72 [Left] O2 Sat by Pulse 100 Oximetry ED Medical Decision Making - Lab Data Result diagrams: 06/26/21 15:46 Vital Signs 06/26/21 13:36 Temperature 98.6 F Pulse Rate 83 Respiratory 16 Rate Blood Pressure 124/72 [Left] O2 Sat by Pulse 100 Oximetry Lab Results 06/26/21 06/26/21 Range/Units 14:10 15:46 WBC 8.9 (4.5-11.0) K/mm3 RBC 3.59 L (3.65-5.03) M/mm3 Hgb 12.7 (10.1-14.3) gm/dl Hct 34.7 (30.3-42.9) % MCV 97 (79-97) fl MCH 35 H (28-32) pg MCHC 36 H (30-34) % RDW 14.5 (13.2-15.2) % Plt Count 368 (140-440) K/mm3 HCG, Quant 1.22 (0-4) mIU/mL - Radiology Data Radiology results: pending, report reviewed, image reviewed US OB <= 14 weeks fetus, US OB transvaginal INDICATION: History of miscarriage, has not had. TECHNIQUE: Transvaginal and transabdominal OB ultrasound COMPARISON: None available. FINDINGS: No intrauterine is identified. There is no gestational sac. The uterus is normal in size, measuring 9.7 cm. The endometrial stripe measures 5 mm. There is a corpus luteal cyst in the left ovary. The right ovary appears normal. IMPRESSION: 1. No intrauterine identified. Signer Name: Diego Shepherd MD Signed: 06/26/2021 2:54 PM Workstation Name: [id number] US OB <= 14 weeks fetus, US OB transvaginal INDICATION: History of miscarriage, has not had. TECHNIQUE: Transvaginal and transabdominal OB ultrasound COMPARISON: None available. FINDINGS: No intrauterine is identified. There is no gestational sac. The uterus is normal in size, measuring 9.7 cm. The endometrial stripe measures 5 mm. There is a corpus luteal cyst in the left ovary. The right ovary appears normal. IMPRESSION: 1. No intrauterine identified. Signer Name: Diego Shepherd MD Signed: 06/26/2021 2:54 PM Workstation Name: [id number] - Medical Decision Making Differential diagnosis, including but not limited to: Retained products of conception, false positive test, false negative test, miscarriage, Assessment and plan: 30-year-old female, who is afebrile, with reassuring vital signs, with a soft benign abdomen, without rebound, guarding or peritoneal signs, who denies irritative and obstructive urinary symptoms, presenting to the ER with a chief complaint of ascertaining whether or not she is . She does not have a noted on ultrasound, or any retained products of conception. hCG negative. CBC unremarkable. Patient resting comfortably on chair, and in no acute distress. Patient updated as to the details of her laboratory studies and ultrasound. She may follow-up with an outpatient [facility]OLOG[facility] TEACHER physician at her convenience Critical care attestation.: If time is entered above; I have spent that time in minutes in the direct care of this critically ill patient, excluding procedure time. ED Disposition Clinical Impression: History of , Negative test Disposition: 01 HOME / SELF CARE / HOMELESS Is pt being admited?: No Does the pt Need Aspirin: No Condition: Good Additional Instructions: Blood work and ultrasound today were unremarkable and within normal limits. Blood work indicated that the patient is not . Ultrasound showed no evidence of , or retained products of conception. The patient may fo llow-up with an outpatient primary care doctor, or electronics design engineer within the next 2 to 3 weeks at her convenience. Please return to the emergency room right away with new pain, worsened pain, migration of pain, projectile vomiting, change in mental status, confusion, inability tolerate liquid feeds, new, worsened or different symptoms not present on the initial emergency room evaluation Referrals: [facility] [Provider Group] - 3-5 Days [facility] [employer] [Provider Group] - 3-5 Days [facility] [Provider Group] - 3-5 Days
--- NOTE | 2021-06-26 15:58 | Ultrasound Report ---
US OB <= 14 weeks fetus, US OB transvaginal INDICATION: History of miscarriage, has not had. TECHNIQUE: Transvaginal and transabdominal OB ultrasound COMPARISON: None available. FINDINGS: No intrauterine is identified. There is no gestational sac. The uterus is normal in size, m easuring 9.7 cm. The endometrial stripe measures 5 mm. There is a corpus luteal cyst in the left ovary. The right ovary appears normal. IMPRESSION: 1. No intrauterine identified. Signer Name: Diego Shepherd MD Signed: 06/26/2021 3:54 PM Workstation Name: [id number]
[2021-06-26 16:00] LABS: Mean Corpuscular HGB Conc 36 % (30-34); Mean Corpuscular Volume 97 fl (79-97); Platelet Count 368 K/mm3 (140-440); Red Blood Count 3.59 M/mm3 (3.65-5.03); Red Cell Distribution Width 14.5 % (13.2-15.2)
[2021-06-26 16:27] LABS: Hematocrit 34.7 % (30.3-42.9); Hemoglobin 12.7 gm/dl (10.1-14.3)
[2021-06-26 16:55] VITALS: BP 125/82
== END 2021-06-26 16:55 | disposition home or self-care (01) ==
LOC: ED 12:08
DX: Z32.02 Encounter for pregnancy test, result negative (principal); F17.200 Nicotine dependence, unspecified, uncomplicated; Z72.89 Other problems related to lifestyle; Z79.899 Other long term (current) drug therapy
CPT/HCPCS: 36415; 76801; 76817; 84702; 85027; 86850; 86900; 86901; 99284